=== PATIENT | male | born 1950 | race Caucasian/White ===

== ENCOUNTER 2022-12-27 09:24 | Day surgery (SDC) | payer MEDICARE ==
[~2022-12-27] VITALS: Ht 167.6 cm; Wt 70.3 kg
[2022-12-27] MEDS ORDERED: PERCOCET 5/321 COMBO PO (11:01)
[2022-12-27 12:39] VITALS: BP 126/80
[2022-12-27] MEDS ORDERED: PERCOCET 5/325M1 TAB PO (13:38)
== END 2022-12-27 12:48 | disposition home or self-care (01) ==
LOC: ORM 09:24
PROVIDERS: ATTEND Surgery
PROC: 0YU50JZ Supplement Right Inguinal Region with Synthetic Substitute, Open Approach (ICD-10-PCS; principal; 2022-12-27)
DX: K40.90 Unilateral inguinal hernia, without obstruction or gangrene, not specified as recurrent (principal)
CPT/HCPCS: C9290; J0131; J0690